=== PATIENT | female | born 1945 | race Caucasian/White ===

== ENCOUNTER 2017-01-04 08:08 | Emergency (ER) | payer MEDICARE, BC ==
--- NOTE | 2017-01-04 09:21 | ERNOTE ---
Date of Service: 01/04/17 Time Seen by Provider: 01/04/17 09:08 Stated Complaint: COUGH Presenting Symptoms:: cough Source: patient Exam Limitations: no limitations Immunizations: IMMUNIZATION HX Immunizations Up to Date Yes History of Influenza Vaccine Yes Hx Pneumococcal Vaccination Yes Allergies/Adverse Reactions: Allergies No Known Allergies Allergy (Verified 01/04/17 08:33) Home Medications: HOME MEDICATIONS Aspirin [Aspirin Enteric Coated] 81 mg PO DAILY 02/24/13 [Last Taken Unknown] Calcium [Calcio Baldo] 500 mg PO DAILY 02/24/13 [Last Taken Unknown] Cyanocobalamin/Folic Acid [Vitamin G10-Ktnqm Acid Tablet] 1 each PO DAILY [Last Taken Unknown] Furosemide [Lasix] 20 mg PO BID 02/24/13 [Last Taken Unknown] Lisinopril [Zestril] 20 mg PO DAILY 02/24/13 [Last Taken Unknown] Multivitamin [Multivitamins] 1 each PO DAILY 02/24/13 [Last Taken Unknown] [place]-3/Dha/Epa/Fish Oil [Fish Oil] 1,000 mg PO DAILY 02/24/13 [Last Taken Unknown] Omeprazole 20 mg PO DAILY 02/24/13 [Last Taken Unknown] Simvastatin [Simvastatin (Zocor)] 40 mg PO DAILY 02/24/13 [Last Taken Unknown] glipiZIDE [Glucotrol] 5 mg PO BID 02/24/13 [Last Taken Unknown] metFORMIN HCL [Glucophage] 1,000 mg PO HS 12/04/14 [Last Taken Unknown] HYDROcodone/ACETAMINOPHEN [[place] 5-325] 1 - 2 tab PO QID PRN #30 tab 01/04/17 [ Last Taken Unknown] - History of Present Ilness Narrative: Rhinorrhea and cough for 8 days. 4 days ago was seen in the [facility] walkin clinic and given doxycycline and tessalon. Tessalon is not helping her cough, and her condition is unchanged. No fever. Timing: constant Severity: mild, moderate Frequency/Possible Cause: Reports: no prior episodes Modifying Factors - Improves: Reports: nothing Modifying Factors - Worsens: Reports: coughing Associated Symptoms: Reports: cough, nasal congestion, nasal drainage, sore throat Prior Treatment: Reports: recently seen, currently on antibiotics Review of Systems - Review of Systems Constitutional: Present: malaise EYE: Present: no symptoms reported ENT: Present: nose congestion, nasal drainage, sore throat Respiratory: Present: cough Cardiology: Present: no symptoms reported Gastrointestinal/Abdominal: Present: no symptoms reported Genitourinary: Present: no symptoms reported Musculoskeletal: Present: no symptoms reported Skin: Present: no symptoms reported Neurological: Present: no symptoms reported Endocrine: Present: no symptoms reported Hematologic/Lymphatic: Present: no symptoms reported Psych: Present: no symptoms reported All Other Systems: All systems neg except as marked - Patient's Past Medical History Patient History - Medical: Diabetes Type 2, GERD Patient History - Cardiac/Respiratory: Hypertension, Hyperlipidemia Patient History - Cancer: Breast Patient History - Surgical Procedures: T & A, Hernia Repair Patient History - Other: None - Social History Living Situations: alone Abuse History: No History of abuse Psych History: No pertinent hx Smoking Status: Never smoker Do you dip or chew tobacco: No Alcohol Use: none Drug Use: none - Immunizations Immunizations Up to Date: Yes Hx Pneumococcal Vaccination: Yes History of Influenza Vaccine: Yes Physical Exam - Physical Exam General Appearance: Present: wd/wn, alert, no apparent distress Eye Exam: Normal inspection: bilateral, PERRL: bilateral, EOMI: bilateral Ears, Nose, Throat: Present: normal ENT inspection, nasal congestion, pharyngeal erythema Neck: Present: normal inspection, nontender. Absent: lymphadenopathy (R), lymphadenopathy (L) Respiratory: Present: no respiratory distress, normal breath sounds Cardiovascular/Chest: Present: regular rate, rhythm, no murmur Gastrointestinal/Abdominal: Present: normal bowel sounds, nontender, nondistended, soft, no organomegaly Back Exam: Present: normal inspection Extremity Exam: Present: normal inspection, no edema Neurological Exam: Present: alert, oriented, normal mood/affect Skin Exam: Present: normal color, warm/dry ED Progress - Vital Signs Patient's Vital Signs:: I have reviewed the patient's vital signs. Vital Signs: Vital Signs 01/04/17 08:26 Temperature 36.3 C L Pulse Rate 77 Respiratory 16 Rate Blood Pressure 139/79 O2 Sat by Pulse 98 Oximetry - Progress/Reassessment Chief Complaint: Cough Departure - Departure Clinical Impression: Viral upper respiratory illness Disposition: Home self-care Condition: Good Instructions: Viral Respiratory Infection, Ijus-At-Uhdq Additional Instructions: Stop the antibiotic and the tessalon. Nasal saline. Mucinex. Followup with your doctor end of this week. Referrals: Dixon Ortiz DO [Primary Care Provider] - Prescriptions: HYDROcodone/ACETAMINOPHEN [[place] 5-325] 1 - 2 tab PO QID PRN #30 tab PRN Reason: Cough
--- OUTSIDE RECORDS SUMMARY | 2017-01-04 09:29 | XMS REPORT | Continuity of Care Document ---
:1945 Author Organization [facility] ([facility]) Address [address] [place] [address] Phone [phone] Care Team Providers Name Role Phone Dixon Ortiz Primary Care Provider [phone] Source Comments This disclosure is being made pursuant to the Care Everywhere program, applicable federal and state laws, and may not contain all informaitonavailable regarding this patient.[facility] ([facility]) Active Allergies and Adverse Reactions No Known Allergies Current Medications Prescription Sig. Disp. Refills Start Date End Date Status ALLOPURINOL 100 mg tablet 100 mg 2 times 01/12/2014 Active daily. LISINOPRIL 20 mg tablet 20 mg daily. 12/10/2013 Active SIMVASTATIN 40 mg tablet 40 mg daily. 01/23/2014 Active OMEPRAZOLE 20 mg extended 20 mg daily. 01/27/2014 Active release capsule METFORMIN 500 mg tablet 1,000 mg at 01/15/2014 Active bedtime. GLIPIZIDE 5 mg tablet 5 mg 2 times daily. 12/23/2013 Active INDOMETHACIN 50 mg 50 mg as needed. 01/12/2014 Active capsule furosemide 20 mg tablet Take 20 mg by mouth Active 2 times daily. aspirin (ASPIRIN LOW Take 81 mg by mouth Active DOSE) 81 mg EC tablet daily. cyanocobalamin (VITAMIN Take 1,000 mcg by Active B-12) 1,000 mcg tablet mouth daily. fish oil-dha-epa Take 1 Cap by mouth Active 1,200-144-216 mg per daily. capsule CALCIUM CARBONATE/VITAMIN Take 1 Tab by mouth Active D3 (CALCIUM+D PO) daily. MULTIVITAMIN Take 1 Tab by mouth Active W-MINERALS/LUTEIN daily. (CENTRUM SILVER PO) GLUCOSAMINE HCL/MSM Take 1 Tab by mouth Active (GLUCOSAMINE MSM PO) 2 times daily. OTHER 1 Tab daily. Active Botanical Thinning Hair Active Problems Problem Noted Date Dyspnea on exertion 05/04/2014 Personal history of malignant neoplasm of breast 12/22/2005 Immunizations Name Dates Previously Given Next Due Influenza, unspecified 07/05/2013 Pneumococcal, unspecified 10/05/2010 Zoster, live (Zostavax) 07/05/2013 Social History Tobacco Use Types Packs/Day Years Used Date Never Smoker Smokeless Tobacco: Never Used Alcohol Use Drinks/Week oz/Week Comments Yes 1 Glasses of wine 0 Cans of beer 0 Standard drinks or equivalent Last Filed Vital Signs Vital Sign Reading Time Taken Blood Pressure 126/66 05/04/2014 8:20 AM CDT Pulse 80 05/04/2014 8:20 AM CDT Temperature 35.8 C (96.4 F) 05/04/2014 8:20 AM CDT Respiratory Rate 16 05/04/2014 8:20 AM CDT Height 1.66 m (5' 5.35") 05/04/2014 8:20 AM CDT Weight 98.8 kg (217 lb 13 oz) 05/04/2014 8:20 AM CDT Body Mass Index 35.85 05/04/2014 8:20 AM CDT Oxygen Saturation 99% 05/04/2014 8:20 AM CDT Plan of Care Health Maintenance Due Date Last Done Comments Hepatitis B Vaccine (1 of 3 1945 - Primary Series) Tdap Vaccine 12/26/1954 Td Vaccine 12/26/1961 Colonoscopy 12/26/1993 Lipid Disorder Screening 03/23/2002 03/23/1997 Mammogram 01/06/2007 01/06/2006, Additional history exists 01/02/2005, 10/17/2003 Osteoporosis Screening (DXA 12/26/2008 Bone Density) Pneumococcal Vaccine (1 of 2 12/26/2008 - PCV13) Influenza Vaccine: Seasonal 05/05/2016 07/05/2013 (#1) Zoster Vaccine Completed 07/05/2013 Results from Last 3 Months Not on file
[2017-01-04 09:37] VITALS: BP 138/68
== END 2017-01-04 09:30 | disposition home or self-care (01) ==
LOC: ER 08:08
DX: J06.9 Acute upper respiratory infection, unspecified (principal)

== ENCOUNTER 2017-02-20 03:21 | Emergency (ER) | payer MEDICARE, BC ==
--- NOTE | 2017-02-20 03:48 | ERNOTE ---
Time Seen by Provider: 02/20/17 03:37 Stated Complaint: URI Presenting Symptoms:: cough, runny nose Source: patient Exam Limitations: no limitations Immunizations: IMMUNIZATION HX Immunizations Up to Date Yes History of Influenza Vaccine Yes Hx Pneumococcal Vaccination Yes Allergies/Adverse Reactions: Allergies No Known Allergies Allergy (Verified 01/04/17 08:33) Home Medications: HOME MEDICATIONS Aspirin [Aspirin Enteric Coated] 81 mg PO DAILY 02/24/13 [Last Taken Unknown] Calcium [Calcio Baldo] 500 mg PO DAILY 02/24/13 [Last Taken Unknown] Furosemide [Lasix] 20 mg PO DAILY 02/24/13 [Last Taken Unknown] Lisinopril [Zestril] 20 mg PO DAILY 02/24/13 [Last Taken Unknown] Multivitamin [Multivitamins] 1 each PO DAILY 02/24/13 [Last Taken Unknown] [place]-3/Dha/Epa/Fish Oil [Fish Oil] 1,000 mg PO DAILY 02/24/13 [Last Taken Unknown] Omeprazole 20 mg PO DAILY 02/24/13 [Last Taken Unknown] Simvastatin [Simvastatin (Zocor)] 40 mg PO DAILY 02/24/13 [Last Taken Unknown] metFORMIN HCL [Glucophage] 1,000 mg PO BID 12/04/14 [Last Taken Unknown] - History of Present Ilness Narrative: pt has had cough for 3-4 days increasing and tonight she thinks she has been wheezing Timing: getting worse Severity: moderate Frequency/Possible Cause: Reports: frequent episodes - of pneumonia and bronchitis Modifying Factors - Worsens: Reports: activity Associated Symptoms: Reports: nasal congestion, nasal drainage Review of Systems - Review of Systems Constitutional: Present: recent illness - diverticulitis EYE: Present: no symptoms reported ENT: Present: See HPI Respiratory: Present: See HPI Cardiology: Absent: chest pain, edema Gastrointestinal/Abdominal: Absent: nausea, vomiting Genitourinary: Present: no symptoms reported Musculoskeletal: Present: no symptoms reported Skin: Present: no symptoms reported Neurological: Present: no symptoms reported Endocrine: Absent: excessive sweating Hematologic/Lymphatic: Present: no symptoms reported Psych: Present: no symptoms reported - Patient's Past Medical History Patient History - Medical: Diabetes Type 2, GERD Patient History - Cardiac/Respiratory: Hypertension, Hyperlipidemia Patient History - Cancer: Breast Patient History - Surgical Procedures: T & A, Other, Hernia Repair Patient History - Other: None - Social History Living Situations: alone Abuse History: No History of abuse Psych History: No pertinent hx Smoking Status: Never smoker Alcohol Use: none Drug Use: none - Immunizations Immunizations Up to Date: Yes Hx Pneumococcal Vaccination: Yes History of Influenza Vaccine: Yes Physical Exam - Physical Exam General Appearance: Present: wd/wn, alert, no apparent distress Eye Exam: Normal inspection: bilateral Ears, Nose, Throat: Present: normal ENT inspection Neck: Present: normal inspection Cardiovascular/Chest: Present: regular rate, rhythm, no murmur, normal peripheral pulses Back Exam: Present: normal inspection, normal range of motion, no CVA tenderness , no vertebral tenderness Extremity Exam: Present: normal inspection, normal range of motion Neurological Exam: Present: alert, oriented, normal mood/affect, no motor/ sensory deficits Skin Exam: Present: normal color, warm/dry Lymphatic Exam: Present: no adenopathy ED Progress - Results and Orders Patient's Lab Results:: I have reviewed the patient's lab results. Results and Orders: Laboratory Tests 02/20/17 03:42 WBC 8.7 Hgb 9.8 L Hct 29.3 L Plt Count 152 - Vital Signs Vital Signs: Vital Signs 02/20/17 03:25 Temperature 36.5 C Pulse Rate 80 Respiratory 20 Rate Blood Pressure 157/91 O2 Sat by Pulse 98 Oximetry - X-Ray X-Ray #1 X-Ray: chest Interpretation: Interp. by me X-ray Comments: nothing acute - Progress/Reassessment Chief Complaint: Cough Departure - Departure Clinical Impression: Bronchitis Disposition: Home Follow Up Needed Condition: Good Instructions: Acute Bronchitis, [id number] Additional Instructions: use inhaler 2-3 times a day until you are feeling better. follow up with your regular doctor within 2-3 days Referrals: Dixon Ortiz DO [Primary Care Provider] -
--- OUTSIDE RECORDS SUMMARY | 2017-02-20 03:59 | XMS REPORT | Continuity of Care Document ---
:1945 Author Organization [facility] ([facility]) Address [address] [place] [address] Phone [phone] Care Team Providers Name Role Phone Dixon Ortiz Primary Care Provider [phone] Source Comments This disclosure is being made pursuant to the Care Everywhere program, applicable federal and state laws, and may not contain all informaitonavailable regarding this patient.[facility] ([facility]) Active Allergies and Adverse Reactions No Known [...]
[2017-02-20 04:05] LABS: Hematocrit 29.3 % (37.0-47.0); Hemoglobin 9.8 gm/dL (12.5-16.0); Mean Cell Volume 92.1 fl (78-100); Mean Corpuscular Hemoglobin 30.8 pg (27-31); Mean Corpuscular Hgb Conc 33.4 g/dl (32-36); Mean Platelet Volume 11.1 fl (6.0-9.5); Platelet Count 152 K/mm3 (150-450); Red Blood Count 3.18 M/mm3 (4.2-5.4); Red Cell Distribution Width 14.4 % (11.5-14.0); White Blood Count 8.7 K/mm3 (4.0-10.5)
[2017-02-20 04:12] LABS: Total Cells Counted 100
[2017-02-20 04:20] LABS: Eosinophil 9 % (0-3); Hypersegmented Polys 1+; Hypochromia 1+; Lymphocyte 15 % (20-51); Monocyte 26 % (0-9); Neutrophil 50 % (42-75); Neutrophil # 4.4 K/mm3 (1.3-6.0); Platelet Estimate Normal (NORMAL); Rouleaux 2+
[2017-02-20 04:42] VITALS: BP 137/75
[2017-02-20] MEDS ORDERED: ALBUTEROL SULFATE 60 PUFF INHALER IH ONE (04:46)
[2017-02-20] MEDS ORDERED: ALBUTEROL SULFATE 200 PUFF INHALER IH ONE (04:53)
== END 2017-02-20 04:59 | disposition home or self-care (01) ==
LOC: ER 03:21
DX: J20.9 Acute bronchitis, unspecified (principal); E11.9 Type 2 diabetes mellitus without complications; K21.9 Gastro-esophageal reflux disease without esophagitis; I10 Essential (primary) hypertension; E78.5 Hyperlipidemia, unspecified; Z85.3 Personal history of malignant neoplasm of breast